=== PATIENT | female | born 1995 | race Hispanic/Latino ===

== ENCOUNTER → 2020-07-08 | Outpatient (CLI) | payer OTHER, BC ==
[~2020-07-08] MED LIST: COVID-19 VACC, MRNA(MODERNA)/PF 100 MCG/0.5 ML VIAL IM ONE
== END | disposition home or self-care (01) ==
LOC: VACCPMC 10:09
DX: Z23 Encounter for immunization (principal); Z20.822 Contact with and (suspected) exposure to COVID-19
CPT/HCPCS: 91301

== ENCOUNTER → 2020-08-05 | Outpatient (CLI) | payer BC, OTHER | END | disposition home or self-care (01) | LOC: VACCPMC 10:13 | DX: Z23 Encounter for immunization (principal); Z20.822 Contact with and (suspected) exposure to COVID-19 ==

== ENCOUNTER 2024-11-17 22:44 | Emergency (ER) | payer BC, OTHER ==
[2024-11-17 22:44] VITALS: PULSE 96; RESP 18; TEMP 98.9
[2024-11-17] MEDS ORDERED: PROMETHAZINE 25MG/ NS 50ML (IV) IV ONE (23:00)
[2024-11-17] MEDS ORDERED: PROMETHAZINE HCL (IM) 25 MG/ML VIAL IM ONE (23:30)
[2024-11-18] MEDS: LACTATED RINGER'S 1,000 ML INJ ONE (00:05)
[2024-11-18] MEDS: FAMOTIDINE 20 MG/2 ML VIAL IV ONE (00:06)
[2024-11-18] MEDS: DEXAMETHASONE SOD PHOS INJ 4 MG/ML SDV IV ONE (00:06)
[2024-11-18] MEDS: DIPHENHYDRAMINE HCL INJ 50 MG/ML VIAL IV ONE (00:07)
[2024-11-18] MEDS: KETOROLAC TROMETHAMINE 30 MG/ML VIAL IV ONE (00:09)
[2024-11-18] MEDS ORDERED: ONDANSETRON HCL INJ 2MG/ML 2ML 2 MG/ML VIAL IV PRN (01:15)
[2024-11-18] MEDS ORDERED: FAMOTIDINE20 MG PO (01:20)
[2024-11-18] MEDS ORDERED: MAALOX MAXIMUM355 ML PO (01:20)
[2024-11-18] MEDS ORDERED: [UNRECOGNIZED DRUG - OTHER] PO (01:20)
[2024-11-18] MEDS ORDERED: ONDANSETRON ODT4 MG PO (01:20)
[2024-11-18] MEDS ORDERED: THERAFLU MS SE1 EACH PO (01:20)
[2024-11-18 01:55] VITALS: BP 123/63; PULSE 88; RESP 18; TEMP 98.6; O2SAT 97
== END 2024-11-18 01:55 | disposition home or self-care (01) ==
LOC: FSED 22:50
DX: R05.9 Cough, unspecified (principal); U07.1 COVID-19; R11.2 Nausea with vomiting, unspecified; E86.0 Dehydration; R55 Syncope and collapse; R53.81 Other malaise
CPT/HCPCS: 74176; 99283; J1100; J1200; J1308; J1885; J2550; J7121